=== PATIENT | male | born 1965 | race Caucasian/White ===

== ENCOUNTER → 2019-10-06 14:59 | Outpatient (CLI) | payer OTHER, SELFPAY ==
--- NOTE | ~2019-10-06 | XR_ITS ---
EXAMINATION:[id number] DATE: 10/06/2019 15:21 INDICATION: Neck pain TECHNIQUE: AP, lateral, lateral swimmers and odontoid views of the cervical spine are provided. COMPARISON: None FINDINGS: Bone alignment is normal. There are changes of anterior fusion from C5 through T1. The odon toid is intact. No fracture is identified. The vertebral body heights are normal. There is mild loss of intervertebral disc space height at C2-3 through C4-5. Small degenerative osteophytes project from the anterior endplates of multiple vertebral bodies. Prevertebral soft tissues are normal. IMPRESSION: 1. Changes of anterior fusion in the lower cervical spine and moderate spondylosis without acute find ings. Reviewed, dictated and finalized at location A. IMPRESSION: 1. Changes of anterior fusion in the lower cervical spine and moderate spondylo sis without acute findings.
== END ==
PROVIDERS: Visit Provider Neurological Surgery
DX: M54.2 Cervicalgia (principal); Z98.1 Arthrodesis status; M47.812 Spondylosis without myelopathy or radiculopathy, cervical region
CPT/HCPCS: 72040

== ENCOUNTER 2021-07-31 12:15 | Emergency (ER) | payer OTHER, SELFPAY ==
[2021-07-31 12:44] VITALS: BP 136/83; PULSE 122; RESP 18; TEMP 36.8; O2SAT 97
--- NOTE | 2021-07-31 12:45 | ED.MALEGU ---
HPI - Male Genitourinary General Chief complaint: Urogenital-Male Stated complaint: uti complaints Source: patient Limitations: no limitations History of Present Illness HPI Narrative: 56-year-old male presenting for complaint of dysuria, suprapubic tenderness, frequency and urgency for about 2 days. He has been taking [id number] Azo and cranberry with improvement in the dysuria. They took a home UTI test that was positive. Patient endorses a history of prostatitis and states Cipro has helped in the past. He also endorses having been on a 90-day antibiotic and followed with urology. States no UTIs in approximately 6 months. Denies flank pain, hematuria, vomiting, diarrhea, constipation, fever or chills. Related Data Home Medications Medication Instructions Recorded Confirmed cyclobenzaprine mg 07/31/21 dicyclomine mg 07/31/21 eluxadoline [Viberzi] mg 07/31/21 07/31/21 ergocalciferol (vitamin D2) 07/31/21 gabapentin 07/31/21 losartan 07/31/21 omeprazole magnesium [Prilosec OTC] PO 07/31/21 Allergies Allergy/AdvReac Type Severity Reaction Status Date / Time lisinopril AdvReac Cough Verified 07/31/21 12:40 Review of Systems Review of Systems: CONSTITUTIONAL: Denies body aches, fever, chills, or sweats. CARDIOVASCULAR: Denies chest pain, palpitations, or edema. RESPIRATORY: Denies cough or dyspnea. GASTROINTESTINAL: Denies abdominal pain, nausea, vomiting, or diarrhea. GENITOURINARY: Reports dysuria, frequency, urgency, denies hematuria, flank pain SKIN: Denies rash, itching, or wounds. MUSCULOSKELETAL: Denies myalgia. [facility] Comments At time of signature, I have reviewed and agree with nursing past medical, surgical, social and family history unless otherwise noted. Please see nursing chart for further information. There is no relevant family history pertinent to the presenting complaint Exam Narrative: GENERAL: Well-appearing, older than stated age, in no acute distress. HEAD: Normocephalic EYES: EOMI. No redness or drainage. ENT: Mucous membranes pink and moist. NECK: Normal AROM. Supple. CHEST: No respiratory distress. Clear to auscultation. HEART: Tachy, Regular rhythm. ABDOMEN: Soft, nontender, nondistended, normal active bowel sounds. No CVA tenderness MUSCULOSKELETAL: Spine brace/support in place No bony tenderness. SKIN: Warm, dry, no rash. NEURO: No focal deficits. Alert and oriented x3. Gait steady. PSYCH: Normal affect. No signs of depression or anxiety. Course Course Emergency Course: UTI on urine dip tachycardia on exam, regular, pt states he has not been ambulating for a few days 2/2 spinal surgery in June. Denies palpitations, cp, sob, dizziness. Patient is aware of diagnosis, understands and agrees to treatment plan. Anticipatory guidance given. Patient agrees to follow-up as directed and is aware of reasons to seek care at the emergency department. Portions of this record may have been created with voice recognition software Level of Care: Express Care Visit Vital Signs Vital signs: Vital Signs Temperature 98.2 F 07/31/21 12:44 Pulse Rate 122 H 07/31/21 12:44 Respiratory Rate 18 07/31/21 12:44 Blood Pressure 136/83 07/31/21 12:44 Pulse Oximetry 97 07/31/21 12:44 Temperature 98.2 F 07/31/21 12:44 Pulse Rate 122 H 07/31/21 12:44 Respiratory Rate 18 07/31/21 12:44 Blood Pressure 136/83 07/31/21 12:44 Pulse Oximetry 97 07/31/21 12:44 Reviewed MDM - Male Genitourinary MDM Narrative Medical decision making narrative: Exam findings and UA show no acute concerns or changes; patient is non-toxic appearing and is in no distress. Patient is appropriate for outpatient treatment and follow-up. Differential Diagnosis Differential diagnosis: Likely urinary tract infection, urethritis, prostatitis and acute retention of urine Lab Data Attestation: I reviewed the patient's lab results. Labs: Urine Characteristics Saman
[2021-07-31 13:16] VITALS: PULSE 117; O2SAT 97
== END 2021-07-31 13:21 | disposition home or self-care (01) ==
PROVIDERS: Emergency Provider Nurse Practitioner Family
DX: N39.0 Urinary tract infection, site not specified (principal); I10 Essential (primary) hypertension; K21.9 Gastro-esophageal reflux disease without esophagitis
CPT/HCPCS: 81003; 87077; 87086; 87186; 99213; G0463

== ENCOUNTER 2021-09-18 12:00 | Emergency (ER) | payer OTHER, SELFPAY ==
[2021-09-18 12:16] VITALS: BP 137/93; PULSE 99; RESP 18; TEMP 36.7; O2SAT 97
--- NOTE | 2021-09-18 12:51 | ED.MALEGU ---
HPI - Male Genitourinary General Chief complaint: Urogenital-Male Stated complaint: Male Urogenital Time Seen by Provider: 09/18/21 12:37 Source: patient, RN notes reviewed and old records reviewed Mode of arrival: ambulatory Limitations: no limitations History of Present Illness HPI Narrative: Patient presents today complaint of 2-day history of dysuria and lower abdominal discomfort. Patient states that he believes he has a recurrence of his prostatitis. 1 month ago, he finished a 1 month course of Cipro for same symptoms. States he has an extensive history of prostatitis and does have a urologist, but has not followed up with one. States he just needs a 2-week course of Cipro, as he is going out of town and wants to get it taken care of. States he also believes his symptoms are exacerbated by the fact that he had some back surgery and has not been drinking enough water. Denies any additional symptoms. MD Complaint: dysuria Related Data Home Medications Medication Instructions Recorded Confirmed cyclobenzaprine mg 07/31/21 dicyclomine mg 07/31/21 eluxadoline [Viberzi] mg 07/31/21 07/31/21 ergocalciferol (vitamin D2) 07/31/21 gabapentin 07/31/21 losartan 07/31/21 omeprazole magnesium [Prilosec OTC] PO 07/31/21 Allergies Allergy/AdvReac Type Severity Reaction Status Date / Time lisinopril AdvReac Cough Verified 09/18/21 12:10 Review of Systems Review of Systems: CONSTITUTIONAL: Denies body aches, fever, chills, or sweats. EYES: Denies visual changes, redness, or discharge. ENT: Denies rhinorrhea, congestion, sore throat, or otalgia. CARDIOVASCULAR: Denies chest pain, palpitations, or edema. RESPIRATORY: Denies cough or dyspnea. GASTROINTESTINAL: Denies abdominal pain, nausea, vomiting, or diarrhea. GENITOURINARY: Denies hematuria.+ Dysuria, lower abdominal discomfort SKIN: Denies rash, itching, or wounds. MUSCULOSKELETAL: Denies back pain, joint pain, or myalgia. NEUROLOGIC: Denies headache, numbness, tingling, or weakness. PSYCH: Denies depression or anxiety. [facility] Past Medical History Medical History (Updated 09/18/21 @ 13:00 by Eloisa Morfin, [facility], ) Prostatitis Comments At time of signature, I have reviewed and agree with nursing past medical, surgical, social and family history unless otherwise noted. Please see nursing chart for further information. There is no relevant family history pertinent to the presenting complaint Exam Narrative: GENERAL: Well-appearing, well-nourished, and in no acute distress. HEAD: Normocephalic, atraumatic. EYES: EOMI. No redness or drainage. Conjunctivae normal. ENT: Mucous membranes pink and moist. NECK: Normal AROM. CHEST: No respiratory distress. ABDOMEN: covered in back brace MUSCULOSKELETAL: Wearing a back brace. EXTREMITIES: Normal range of motion. No edema. SKIN: Warm, dry, no rash. Capillary refill normal. Normal skin turgor. NEURO: No focal deficits. Alert and oriented x3. Gait steady. PSYCH: Normal affect. No signs of depression or anxiety. Course Course Emergency Course: Discussed with patient that he has no evidence of infection in his urine today. Patient states, it never does when I have prostatitis. Offered to culture his urine and start him on antibiotics in a couple of days when the culture results. Patient states he is going out of town and wants to get started on antibiotics now. Told patient that this is not standard of care. Patient was very rude and persistent about getting started on antibiotics today regardless of his urinalysis results. Even discussed with him the risks of being on Cipro, especially so frequently. Finally told him that I would give him a 2-week course, but told him that he needed to see his urologist and get refills if this is the treatment that his urologist recommends, that we would not continue to put him on Cipro frequently without evidence of infection here at urgent care. Level of Care: Expres
== END 2021-09-18 12:58 | disposition home or self-care (01) ==
PROVIDERS: Emergency Provider Nurse Practitioner
DX: R30.0 Dysuria (principal)
CPT/HCPCS: 81003; 87086; 99213; G0463

== ENCOUNTER 2022-07-11 17:06 | Emergency (ER) | payer OTHER, SELFPAY ==
[2022-07-11 17:37] VITALS: BP 148/94; PULSE 96; RESP 20; TEMP 36.2; O2SAT 98
--- NOTE | 2022-07-11 18:25 | ED.MALEGU ---
HPI - Male Genitourinary General Chief complaint: Urogenital-Male Stated complaint: lower abdominal and groin pain Time Seen by Provider: 07/11/22 18:25 Source: patient Mode of arrival: ambulatory Limitations: no limitations History of Present Illness HPI Narrative: 57-year-old male presents with complaint of lower abdominal pain, dysuria, frequency for 2-3 days. Reports history of chronic prostatitis. Reports that these are the same symptoms he gets when he has prostatitis. States that he takes Levaquin when he has an infection. Was able to get in to see his primary care doctor today. Is going out of town to the [facility] and wants to start treatment prior to leaving. Afebrile. Denies nausea vomiting diarrhea. All systems reviewed and negative except as noted above. Related Data Home Medications Medication Instructions Recorded Confirmed gabapentin 300 mg capsule 300 mg PO TID 07/31/21 07/11/22 losartan 50 mg tablet 50 mg PO DAILY 07/31/21 07/11/22 omeprazole magnesium 20 mg 20 mg PO DAILY 07/31/21 07/11/22 tablet,delayed release (Prilosec OTC) tamsulosin 0.4 mg capsule 0.4 mg PO DAILY 07/11/22 07/11/22 Allergies Allergy/AdvReac Type Severity Reaction Status Date / Time lisinopril AdvReac Mild Cough Verified 07/11/22 17:56 Review of Systems Review of Systems: CONSTITUTIONAL: Denies fever, chills, or sweats. EYES: Denies visual changes, redness, or discharge. ENT: Denies rhinorrhea, congestion, sore throat, or otalgia. CARDIOVASCULAR: Denies chest pain, palpitations, or edema. RESPIRATORY: Denies cough or dyspnea. GASTROINTESTINAL: Denies suprapubic abdominal pain. Denies nausea, vomiting, or diarrhea. GENITOURINARY: Reports dysuria, frequency. Denies hematuria. SKIN: Denies rash or itching. MUSCULOSKELETAL: Denies back pain, joint pain, or myalgia. NEUROLOGIC: Denies headache, numbness, or weakness. PSYCHIATRIC: Denies anxiety or depression. All other systems reviewed are negative, except as documented in HPI. [facility] Past Medical History Medical History (Updated 07/11/22 @ 18:31 by Kayley Corona NP) Prostatitis Comments At time of signature, agree with nursing past medical, surgical, social and family history. There is no relevant family history pertinent to the presenting complaint. Exam Narrative: GENERAL: This is a well-nourished, well-developed patient, in no apparent distress. HEAD: normocephalic, atraumatic. EYES: PERRL. Sclera clear/white. Vision is grossly intact. EARS: External ears normal NOSE: External nose normal NECK: Neck supple, non-tender without lymphadenopathy, masses or thyromegaly. CARDIOVASCULAR: Regular rate and rhythm without murmurs, gallops, or rubs. RESPIRATORY: Clear to auscultation. Breath sounds equal bilaterally. No wheezes, rales, or rhonchi. SKIN: warm, Dry, intact with no suspicious lesions or rash, good texture and turgor. NEURO: awake, alert, and oriented to person, place and time. There were no obvious focal neurologic abnormalities. EXTREMITIES: No joint tenderness, effusion, or edema noted. Course Course Level of Care: Express Care Visit Vital Signs Vital signs: Vital Signs Temperature 36.2 C L 07/11/22 17:37 Pulse Rate 96 07/11/22 17:37 Respiratory Rate 20 07/11/22 17:37 Blood Pressure 148/94 H 07/11/22 17:37 Pulse Oximetry 98 07/11/22 17:37 Oxygen Delivery Room Air 07/11/22 17:37 Temperature 36.2 C L 07/11/22 17:37 Pulse Rate 96 07/11/22 17:37 Respiratory Rate 20 07/11/22 17:37 Blood Pressure 148/94 H 07/11/22 17:37 Pulse Oximetry 98 07/11/22 17:37 Oxygen Delivery Room Air 07/11/22 17:37 reviewed MDM - Male Genitourinary MDM Narrative Medical decision making narrative: will treat patient for prostatitis based off history and symptoms. He does not want a prostate exam today. Patient is aware of diagnosis, understands and agrees to treatment plan. Anticipatory diane
== END 2022-07-11 18:33 | disposition home or self-care (01) ==
PROVIDERS: Emergency Provider Nurse Practitioner Family
DX: N41.0 Acute prostatitis (principal)
CPT/HCPCS: 81003; 99213; G0463